=== PATIENT | female | born 1970 | race Caucasian/White ===

== ENCOUNTER → 2018-10-19 13:45 | Outpatient (CLI) | payer OTHER, SELFPAY ==
[2018-10-21 17:14] LABS: HPV Reflexed? NOT INDICATED
== END ==
PROVIDERS: Referring Provider Obstetrics & Gynecology; Visit Provider Obstetrics & Gynecology
DX: Z12.4 Encounter for screening for malignant neoplasm of cervix (principal)
CPT/HCPCS: 88175; G0145

== ENCOUNTER → 2021-04-24 | Outpatient (CLI) | payer OTHER, SELFPAY ==
--- NOTE | 2021-04-24 | EMB_PTH ---
PATIENT: SOY TOPETE LOC: [facility] U#:[id number] AGE/SX: 50/F ROOM: RE04/24/[address]: Dr. Josette Stout MD : [id number] BED: DIS: 04/24/2021 SPEC #: [id number] RECD: 04/24/21 14:05 STATUS: YUN REUrmila #: [id number] QUE: 04/24/21 00:[address]: Josette Preston DEPT: SURGICAL PATHOLOGY RECD BY: Sourav Chaudhary Tissues: Endometrium, NOS Procedures: Surgery Specimen Level IV HEADER OPERATION: Endometrial biopsy PRE-OP DIAGNOSIS: Frequent and irregular bleeding TISSUE SUBMITTED: Endometrial biopsy MICROSCOPIC DIAGNOSIS Endometrial biopsy: Secretory endometrium. REINALDO:thierno 04/28/2021 MICROSCOPIC DESCRIPTION Slides are reviewed. GROSS DESCRIPTION Received in fixative is one container labeled with the patient's name and designated endometrial biopsy. The specimen consists of multiple irregular and elongated fragments of light to dark moss soft tissue that in aggregate measure 3 x 1.5 x 0.1 cm. The specimen is totally submitted in one cassette. / AM:thierno 04/27/21 TC:4 CPT: 45470
== END | disposition home or self-care (01) ==
LOC: LABSPEC 13:50
PROVIDERS: Visit Provider Obstetrics & Gynecology
DX: N92.1 Excessive and frequent menstruation with irregular cycle (principal)
CPT/HCPCS: 88305

== ENCOUNTER → 2022-01-29 | Outpatient (CLI) | payer OTHER, SELFPAY ==
[2022-01-29 17:40] LABS: T3 Total - Triiodothyronine 1.12 ng/mL (0.6-1.81)
[2022-01-29 17:46] LABS: Free T3 2.9 pg/mL (2.18-3.98); T4 Free Direct 0.99 ng/dL (0.76-1.46); Thyroid Stim Hormone (TSH) 4.47 uIU/mL (0.358-3.74)
[2022-02-05 12:28] LABS: T3 Reverse 14.4 ng/dL (9.2-24.1)
== END | disposition home or self-care (01) ==
LOC: WOBLAB 15:40
PROVIDERS: Visit Provider Obstetrics & Gynecology
DX: E03.9 Hypothyroidism, unspecified (principal)
CPT/HCPCS: 36415; 84439; 84443; 84480; 84481; 84482